=== PATIENT | male | born 1940 ===

== ENCOUNTER 2020-06-07 18:04 | Emergency (ER) | payer MEDICAID, MEDICARE, OTHER ==
[2020-06-07] MEDS ORDERED: Lidocaine 2% HCl 11 ML Jelly Filled Syringe TOP ONE (18:33)
--- NOTE | 2020-06-07 19:16 | EDM.PDOC ---
ED HPI GENERAL MEDICAL PROBLEM - General Chief Complaint: Genitourinary Problem Stated Complaint: unable to void, fever Time Seen by Provider: 06/07/20 18:31 Source of Information: Reports: Patient, Other ([facility]) History Limitations: Reports: No Limitations - History of Present Illness INITIAL COMMENTS - FREE TEXT/NARRATIVE: Patient sent here from [facility] for placement of Carmona. He had been complaining of feeling like he was unable to void. They apparently tried to place a catheter for bladder drainage but were unsuccessful. He was then referred here to see if our facility could get a carmona placed. Patient has current UTI. [facility] relayed that there was concern that the UTI and addition to BPH was cause of voiding issue. Patient himself has no complaints of pain/discomfort upon arrival. Does feel that he is unable to completely void on own when he is directly questioned about this. He denies any abdominal or bladder pain. Was treated with Cipro later April for UTI and just started Septra for current infection. - Related Data Allergies Allergy/AdvReac Type Severity Reaction Status Date / Time No Known Allergies Allergy Verified 06/07/20 18:32 Home Meds: Home Meds Acetaminophen [Tylenol Arthritis] 650 mg PO TID@08,16,20 MDD 4 grams in 24 hours 06/07/20 [History] Acetaminophen [Tylenol] 650 mg PO Q4HR PRN 06/07/20 [History] Ammonium Lactate [Lac-Hydrin 12% Crm] 1 applic TOP DAILY 06/07/20 [History] Apixaban [Eliquis] 5 mg PO Q12HR 06/07/20 [History] Bacitracin Zinc 1 applic TOP DAILY 06/07/20 [History] Calcium Carbonate/Vitamin D3 [Calcium 600-Vit D3 400 Tablet] 1 tab PO Q12HR 06/07/20 [History] Escitalopram Oxalate [Lexapro] 20 mg PO DAILY 06/07/20 [History] Famotidine [Pepcid] 20 mg PO Q12HR 06/07/20 [History] Isosorbide Dinitrate 30 mg PO DAILY 06/07/20 [History] OLANZapine [Zyprexa] 5 mg PO Q12HR 06/07/20 [History] Sucralfate [Carafate] 1 gm PO BEDTIME 06/07/20 [History] Sulfamethoxazole/Trimethoprim [Bactrim Ds Tablet] 1 tab PO [id number] 06/07/20 [History] Tamsulosin [Flomax] 0.4 mg PO BEDTIME 06/07/20 [History] carvediloL [Coreg] 6.25 mg PO Q12HR 06/07/20 [History] glipiZIDE [Glucotrol XL] 5 mg PO DAILY 06/07/20 [History] metFORMIN [Glucophage XR] 500 mg PO BID@08,16 06/07/20 [History] ED ROS GENERAL - Review of Systems Review Of Systems: See Below Constitutional: Denies: Fever, Chills, Malaise, Weakness HEENT: Denies: Rhinitis, Sinus Problem, Throat Pain, Throat Swelling Respiratory: Reports: No Symptoms Cardiovascular: Reports: No Symptoms GI/Abdominal: Reports: No Symptoms : Reports: Urinary Retention. Denies: Dysuria, Flank Pain, Hematuria, Pain, Urgency Musculoskeletal: Reports: Other (no acute changes from baseline) Skin: Reports: No Symptoms Neurological: Reports: No Symptoms Psychiatric: Reports: No Symptoms Hematologic/Lymphatic: Reports: No Symptoms ED EXAM, GENERAL - Physical Exam Exam: See Below Exam Limited By: No Limitations General Appearance: Alert, WD/WN, No Apparent Distress Eye Exam: Bilateral Eye: EOMI, PERRL Ears: Hearing Loss Throat/Mouth: Normal Voice, No Airway Compromise Head: Atraumatic, Normocephalic Neck: Supple Respiratory/Chest: No Respiratory Distress, Lungs Clear, Normal Breath Sounds, No Accessory Muscle Use Cardiovascular: Regular Rate, Rhythm, No Murmur GI/Abdominal: Normal Bowel Sounds, Soft, Non-Tender, No Distention (Male) Exam: Deferred Rectal (Males) Exam: Deferred Extremities: Non-Tender Neurological: Alert Psychiatric: Normal Affect, Normal Mood Skin Exam: Warm, Dry, Intact Course - Vital Signs Last Recorded V/S: Last Vital Signs Temp 37.1 C 06/07/20 18:30 Pulse 89 06/07/20 18:30 Resp 18 06/07/20 18:30 BP 107/77 06/07/20 18:30 Pulse Ox 96 06/07/20 18:30 - Orders/Labs/Meds Orders: Active Orders 24 hr Category Date Time Status Carmona Catheter Insertion [Insert Urinary Catheter] [OM. Care 06/07/20 18:45 Ordered PC] Q24H Urinary Catheter Assessment [RC] ASDIRECTED Care 06/07/20 18:31 Active Labs: Laboratory Tests 06/07/20 Range/Units 18:45 Specimen Type Urincath Urine Color Yellow Urine Appearance Slightly cloudy Urine pH 5.5 (5.0-9.0) Ur Specific [place] 1.015 (1.005-1.030) Urine Protein 30 H (NEGATIVE) mg/dL Urine Glucose (UA) Negative (NEGATIVE) mg/dL Urine Ketones Negative (NEGATIVE) mg/dL Urine Occult Blood Moderate H (NEGATIVE) Urine Nitrite Positive H (NEGATIVE) Urine Bilirubin Negative (NEGATIVE) Urine Urobilinogen 0.2 (0.2-1.0) E.U./dL Ur Leukocyte Esterase Small H (NEGATIVE) Urine RBC 0-5 /HPF Urine WBC 30-40 H /HPF Urine Bacteria Many H (NONE TO FEW) /HPF Meds: Medications Discontinued Medications Generic Name Dose Route Start Last Admin Trade Name Freq PRN Reason Stop Dose Admin Lidocaine HCl 11 ml 06/07/20 18:33 06/07/20 18:38 Glydo TOP 06/07/20 18:34 11 ml ONETIME ONE Administration - Re-Assessments/Exams Free Text/Narrative Re-Assessment/Exam: 06/07/20 19:16 Bladder scan showed minimal urine retention, approx 175cc noted. Carmona placed by nursing staff without any difficulty. New UA/UC sent to our lab. OK to return to [facility] and continue follow up with PCP and current antibiotic regimen. Departure - Departure Time of Disposition: 19:18 Disposition: DC/Tfer to [facility] 03 Condition: Good Clinical Impression: Urinary retention UTI (urinary tract infection) Qualifiers: Urinary tract infection type: acute cystitis Hematuria presence: without hematuria Qualified Code(s): N30.00 - Acute cystitis without hematuria - Discharge Information *PRESCRIPTION DRUG MONITORING PROGRAM REVIEWED*: Not Applicable *COPY OF PRESCRIPTION DRUG MONITORING REPORT IN PATIENT GUMARO: Not Applicable Referrals: Libertad Novoa PA-C [Primary Care Provider] - Additional Instructions: Continue follow up for ongoing UTI/Carmona catheter and care with patient's primary care provider. Continue current antibiotic regimen. New urine culture initiated here with specimen obtained from catheterized UA specimen. Follow up otherwise as needed. Sepsis Event Note (ED) - Evaluation Sepsis Screening Result: No Definite Risk - Focused Exam Vital Signs: Vital Signs Temp Pulse Resp BP Pulse Ox 12/09/20 18:30 37.1 C 89 18 107/77 96 - My Orders Last 24 Hours: My Active Orders 06/07/20 18:31 Urinary Catheter Assessment [RC] ASDIRECTED 06/07/20 18:45 Carmona Catheter Insertion [Insert Urinary Catheter] [OM.PC] Q24H - Assessment/Plan Last 24 Hours: My Active Orders 06/07/20 18:31 Urinary Catheter Assessment [RC] ASDIRECTED 06/07/20 18:45 Carmona Catheter Insertion [Insert Urinary Catheter] [OM.PC] Q24H
== END 2020-06-07 20:20 ==
LOC: LL.ED 18:04
DX: N30.00 Acute cystitis without hematuria (principal); R33.9 Retention of urine, unspecified; Z79.899 Other long term (current) drug therapy
CPT/HCPCS: 51702; 81001; 87086; 87088; 87186; 99284-25; A9270-GY